=== PATIENT | male | born 1955 | race Caucasian/White ===

== ENCOUNTER → 2022-03-11 10:01 | Outpatient (CLI) | payer MEDICARE, BC, SELFPAY ==
--- NOTE | ~2022-03-11 | XR_ITS ---
EXAMINATION: XR hip RT min 2V DATE: 03/11/2022 10:38 INDICATION: Right hip pain. TECHNIQUE: 2 views of right hip were obtained. COMPARISON: None. FINDINGS: Bone alignment is normal. No fracture. There is mild right hip osteoarthritis. IMPRESSION: 1. Mild right hip osteoarthritis. Reviewed, dictated and finalized at location B.
== END ==
PROVIDERS: PCP Internal Medicine; Visit Provider Internal Medicine
DX: M16.11 Unilateral primary osteoarthritis, right hip (principal)
CPT/HCPCS: 73502

== ENCOUNTER → 2022-10-23 11:28 | Outpatient (CLI) | payer MEDICARE, BC, SELFPAY ==
--- NOTE | ~2022-10-23 | XR_ITS ---
Thoracic spine: Clinical Indication: Dorsalis AP and lateral views were performed. No fracture is seen. There is normal alignment of the vertebrae. The intervertebral disc spaces appe ar normal. Paravertebral soft tissues appear normal. Impression: No significant abnormalities noted. Reviewed, dictated and finalized at [facility]. [facility] Impression: No significant abnormalities noted.
== END ==
PROVIDERS: PCP Internal Medicine; Visit Provider Internal Medicine
DX: M54.9 Dorsalgia, unspecified (principal)
CPT/HCPCS: 72070

== ENCOUNTER 2024-01-19 12:44 | Outpatient (CLI) | payer MEDICARE, BC, SELFPAY ==
--- NOTE | ~2024-01-19 | CT_ITS ---
Non-contrast CT scan of the Abdomen Clinical indication: Umbilical hernia Technique: 2.5 mm axial scans were obtained through the abdomen without intravenous or oral contrast . Dose reduction technique was used on this scan by utilizing automated exposure control and iterativ e reconstruction technique. The dose-length product (DLP) was 450.73 mGy-cm. Findings: Images through the lung bases reveal no abnormalities. 9 mm probable hyperdense right renal cyst present. Small simple left renal cyst present. The liver, spleen, pancreas, gallbladder, and adrenals appear normal. There is no aortic aneurysm. Small fat-containing umbilical hernia present. Visualized bowel loops are unremarkable. No ascites. Impression: Small fat-containing umbilical hernia. 9 mm probable hyperdense right renal cyst. Reviewed, dictated and finalized at [facility]. Impression: Small fat-containing umbilical hernia. 9 mm probable hyperdense right renal cyst.
== END 2024-01-19 12:45 ==
LOC: MICIMG 12:45
PROVIDERS: PCP Internal Medicine; Visit Provider Internal Medicine
DX: K42.9 Umbilical hernia without obstruction or gangrene (principal); N28.1 Cyst of kidney, acquired
CPT/HCPCS: 74150